=== PATIENT | male | born 1980 | race Caucasian/White ===

== ENCOUNTER → 2016-07-29 | Outpatient (CLI) | payer BC ==
--- NOTE | 2016-07-29 15:45 | US ---
EXAMINATION TYPE: US scrotum with doppler. DATE OF EXAM: 07/29/2016 3:31 PM TECHNIQUE: Multiple sonographic images of the scrotum were obtained. Color Doppler and spectral wavef orm analysis of the testicular arteries and veins. COMPARISON: NONE CLINICAL HISTORY: 36-year-old male N50.89 Swelling of testicle. Right sided swelling FINDINGS: TESTICLES: Right Testicle: 3.9 x 2.6 x 2.8 cm Left Testicle: 3.8 x 1.9 x 2.5 cm The testicles are relatively symmetric in size with homogeneous echotexture and no hyperemia. There i s satisfactory arterial and venous flow seen on the right and arterial flow seen on the left. It does not appear that the loop puller sample the left testicular veins. EPIDIDYMIS HEAD: Right Epididymis: 1.2 x 0.8 cm Left Epididymis: 0.9 x 0.5 cm No hyperemia on either side. There is moderate to large fluid around the right testicle with some internal debris. No varicocele s een. IMPRESSION: 1. Moderate to large right-sided hydrocele containing some debris. 2. No sonographic features of testicular torsion or epididymoorchitis.
== END | disposition home or self-care (01) ==
LOC: RADUSWWP 15:11
PROVIDERS: ATTEND Internal Medicine
DX: N43.3 Hydrocele, unspecified (principal)
CPT/HCPCS: 76870; 93975

== ENCOUNTER → 2020-11-04 | Outpatient (CLI) | payer BC ==
--- NOTE | 2020-11-04 22:09 | MR ---
Result: History: M25.521 Pain in right elbow. Clicking and locking 15 years. Comparison: None available. Technique: Routine multisequence magnetic resonance imaging examination of the right elbow was perfor med without the administration of gadolinium based intravenous contrast. Findings: The bone marrow signal is unremarkable. There is no evidence of fracture or dislocation. The distal biceps tendon is unremarkable. The imaged biceps muscle is normal without atrophy. The distal brachialis muscle and tendon are grossly unremarkable.The triceps tendon is grossly unremarka ble. There is small elbow joint effusion. There is mild tendinosis of the common extensor tendon without d isruption or tear seen. There is mild irregularity of the radial collateral ligament compatible with prior grade 1 sprain. The ulnar collateral ligaments are normal. The imaged common flexor tendon is grossly intact. The visualized neurovascular bundle are unremarkable. Impression: Mild tendinosis of the common extensor tendon and prior sprain of the radial collateral ligament. Small elbow joint effusion. Otherwise no significant abnormality.
== END | disposition home or self-care (01) ==
LOC: RADMRIMAIN 06:04
PROVIDERS: ATTEND Orthopaedic Surgery Hand Surgery
DX: M67.823 Other specified disorders of tendon, right elbow (principal)

== ENCOUNTER 2023-01-06 08:28 | Day surgery (SDC) | payer BC ==
[2023-01-04 08:42] VITALS: BMI 25.4
[2023-01-06] MEDS ORDERED: LACTATED RINGERS 1,000 ML IV SCH (08:50)
[2023-01-06 09:04] VITALS: RESP 16; TEMP 97.8
[2023-01-06] MEDS ORDERED: MIDAZOLAM 2 MG/2 ML VIAL ONE (09:35)
[2023-01-06] MEDS ORDERED: fentaNYL (PF) 50 MCG/ML 2 ML AMP ONE (09:35)
[2023-01-06] MEDS ORDERED: PROPOFOL 10 MG/ML 20 ML VIAL IV ONE (09:35)
--- NOTE | 2023-01-06 09:55 | P.PCN ---
Date of Procedure: 01/06/23 Procedure(s) Performed: Brief history: Patient is a pleasant 42-year-old white scheduled for an elective upper endoscopy as well as colonoscopy as a part of evaluation of GERD and screening for colon cancer Procedure performed: Esophagogastroduodenoscopy Colonoscopy Preoperative diagnosis: GERD Screening for colon cancer Anesthesia: MAC Procedure: After informed consent was obtained from the patient was brought into the endoscopy unit and IV sedation was administered by anesthesia under continuous monitoring. Initially upper endoscopy was done. The Olympus GF 160 video endoscope was inserted inserted into the mouth and esophagus intubated without any difficulty and was gradually advanced into the stomach and duodenum and carefully examined. The bulb and second part of the duodenum appeared normal. The scope was then withdrawn into the stomach adequately insufflated with air and upon careful examination the antrum and body, cardia and fundus appeared normal. The scope was then withdrawn into the esophagus. The GE junction was located at 40 cm to the incisors. It appeared regular with no erythema erosions or ulcerations. Rest of the esophagus appeared normal. Patient tolerated the procedure well. At this time the patient continued to remain sedation. Initial digital rectal examination was normal. Olympus CF 160 video colonoscope was then inserted into the rectum and gradually advanced to the cecum without any difficulty. Careful examination was performed as the scope was gradually being withdrawn. The prep was excellent. The cecum, ascending colon, transverse colon, descending colon, sigmoid colon and rectum appeared normal. Retroflexion was performed in the rectum and no lesions were noted. Patient tolerated the procedure well. Impression: 1. Upper endoscopy revealed normal-appearing esophagus with no evidence of esophagitis or Hooker's esophagus 2. Colonoscopy was within normal limits with no evidence of colorectal neoplasia Recommendations: Findings of this examination were discussed with the patient as well as his family. He was advised to continue with omeprazole 20 mg daily and follow antireflux measures. Recommend repeat screening colonoscopy in 10 years.
[2023-01-06 10:21] VITALS: BP 103/73; PULSE 60
== END 2023-01-06 10:46 | disposition home or self-care (01) ==
LOC: ORWHC2ENDO 08:28
PROVIDERS: ATTEND Internal Medicine Gastroenterology
DX: Z12.11 Encounter for screening for malignant neoplasm of colon (principal); K21.9 Gastro-esophageal reflux disease without esophagitis; F43.10 Post-traumatic stress disorder, unspecified; Z79.899 Other long term (current) drug therapy
CPT/HCPCS: 45378; 43235; J2250; J3010; J2704